=== PATIENT | male | born 1965 | race Caucasian/White ===

== ENCOUNTER 2023-11-26 10:24 | Observation (INO) | payer MEDICAID, OTHER, SELFPAY ==
[~2023-11-26] VITALS: Ht 185.4 cm; Wt 93.7 kg
[2023-11-26 13:36] LABS: BASO # 0.1 10^3/uL (0.0-0.2); BASO % 0.6 % (0.0-1.0); EOS # 0.2 10^3/uL (0.0-0.5); HEMATOCRIT 39.2 % (42.0-52.0); HEMOGLOBIN 12.5 g/dl (13.5-17.5); LYMPH # 2.2 10^3/uL (1.5-5.0); LYMPH % 26.7 % (24.0-44.0); MEAN CORPUSCULAR HEMOGLOBIN 28.3 pg (27.0-33.0); MEAN CORPUSCULAR HGB CONC 31.9 g/dl (32.0-36.5); MEAN CORPUSCULAR VOLUME 88.9 fl (80.0-96.0); MONO # 0.6 10^3/uL (0.0-0.8); NEUTROPHILS % 61.5 % (36.0-66.0); PLATELET COUNT, AUTOMATED 555 10^3/uL (150-450); RED BLOOD COUNT 4.41 10^6/uL (4.30-6.10); WHITE BLOOD COUNT 8.1 10^3/uL (4.0-10.0)
[2023-11-26 13:43] LABS: ERYTHROCYTE SEDIMENTATION RATE 74 mm/hr (0-20)
[2023-11-26 13:49] LABS: INR 1.29; PROTHROMBIN TIME 15.7 SECONDS (12.5-14.5)
[2023-11-26 13:50] LABS: PARTIAL THROMBOPLASTIN TIME 30.8 SECONDS (24.8-34.2)
[2023-11-26 14:01] LABS: ALBUMIN 3.2 G/DL (3.2-5.2); ALKALINE PHOSPHATASE 67 U/L (46-116); ALT/SGPT < 9 U/L (7.0-40); AST/SGOT < 8 U/L (<34); BILIRUBIN,DIRECT 0.2 MG/DL (<0.4); BILIRUBIN,TOTAL 0.3 MG/DL (0.3-1.2); BLOOD UREA NITROGEN 14 MG/DL (9-23); CALCIUM LEVEL 8.9 MG/DL (8.5-10.1); CARBON DIOXIDE LEVEL 27 MMOL/L (20-31); CHLORIDE LEVEL 111 MMOL/L (98-107); CREATININE FOR GFR 1.02 MG/DL (0.70-1.30); GLOMERULAR FILTRATION RATE > 60.0 (>56); GLUCOSE, FASTING 84 MG/DL (60-100); SODIUM LEVEL 144 MMOL/L (136-145); TOTAL PROTEIN 7.2 G/DL (5.7-8.2)
[2023-11-26] MEDS ORDERED: MORPHINE 4 MG/ML 1ML VIAL IV ONE (14:15)
[2023-11-26 14:16] LABS: RSV AMPLIFICATION NEGATIVE (NEGATIVE)
[2023-11-26] MEDS ORDERED: MORPHINE 2 MG/ML 1ML VIAL IV ONE (14:55)
[2023-11-26] MEDS ORDERED: ASPIRIN 81MG CHEW TABLET PO ONE (14:55)
[2023-11-26] MEDS: HYDROMORPHONE HCL 0.5 MG/ 0.5 ML SYRINGE IV PRN ×2 (17:58→20:49)
[2023-11-26] MEDS ORDERED: ONDANSETRON 4MG ORAL DISINTEGRATING TAB PO ONE (18:05)
[2023-11-26] MEDS ORDERED: PROHANCE 279.3MG/ML 5ML VIAL As Ordered ONE (18:25)
[2023-11-26] MEDS ORDERED: PROHANCE 279.3MG/ML 15ML VIAL As Ordered ONE (18:25)
[2023-11-26 18:45] LABS: PROCALCITONIN 0.05 ng/ml
[2023-11-26 19:04] LABS: CHOLESTEROL LEVEL 107 MG/DL (<200); HDL CHOLESTEROL 30.5 MG/DL (>40); LDL CHOLESTEROL 49.9 MG/DL (<100); NON-HDL-C 76.5 MG/DL; TRIGLYCERIDES LEVEL 133 MG/DL (<150)
[2023-11-26 19:07] LABS: VITAMIN B12 LEVEL 715 PG/ML (211-911)
[2023-11-26] MEDS ORDERED: MED REC IN PROGRESS XX SCH (19:25)
[2023-11-26 19:27] LABS: HEMOGLOBIN A1c 5.4 % (4.0-6.0)
[2023-11-26] MEDS ORDERED: ALEV220T22 PO (22:12)
[2023-11-26] MEDS ORDERED: HOME MED LIST COMPLETE! XX SCH (22:15)
[2023-11-26] MEDS: GABAPENTIN 300 MG CAP PO SCH (22:31)
[2023-11-26] MEDS: NORCO, ANEXSIA 5/325MG TABLET (HYDROcodone/ACETAMINOPHEN) PO PRN (22:32)
[2023-11-26 22:52] LABS: APPEARANCE, URINE CLEAR (CLEAR); BACTERIA, URINE AUTO NEGATIVE (NEGATIVE); BILIRUBIN, URINE AUTO NEGATIVE (NEGATIVE); BLOOD, URINE BLOOD 2+ (NEGATIVE); COLOR, URINE YELLOW (YELLOW); GLUCOSE, URINE (UA) AUTO NEGATIVE (NEGATIVE); KETONE, URINE AUTO NEGATIVE (NEGATIVE); LEUKOCYTE ESTERASE, URINE AUTO TRACE (NEGATIVE); MUCUS, URINE SMALL (NEGATIVE); NITRITE, URINE AUTO NEGATIVE (NEGATIVE); PROTEIN, URINE AUTO 1+ mg/dL (NEGATIVE); RBC, URINE AUTO 28 /HPF (0-3); SPECIFIC GRAVITY URINE AUTO 1.021 (1.002-1.035); SQUAMOUS EPITHELIAL CELL UR AU 0 /HPF (0-6); UROBILINOGEN, URINE AUTO 0.2 mg/dL (0.0-2.0); WBC, URINE AUTO 4 /HPF (0-3)
[2023-11-27 06:16] LABS: HEMATOCRIT 36.7 % (42.0-52.0); HEMOGLOBIN 11.6 g/dl (13.5-17.5); MEAN CORPUSCULAR HEMOGLOBIN 28.4 pg (27.0-33.0); MEAN CORPUSCULAR HGB CONC 31.6 g/dl (32.0-36.5); PLATELET COUNT, AUTOMATED 481 10^3/uL (150-450); RED BLOOD COUNT 4.08 10^6/uL (4.30-6.10); WHITE BLOOD COUNT 7.5 10^3/uL (4.0-10.0)
[2023-11-27 06:44] LABS: BLOOD UREA NITROGEN 14 MG/DL (9-23); CALCIUM LEVEL 8.7 MG/DL (8.5-10.1); CARBON DIOXIDE LEVEL 24 MMOL/L (20-31); CHLORIDE LEVEL 112 MMOL/L (98-107); CREATININE FOR GFR 0.94 MG/DL (0.70-1.30); GLOMERULAR FILTRATION RATE > 60.0 (>56); GLUCOSE, FASTING 79 MG/DL (60-100); POTASSIUM SERUM 4.5 MMOL/L (3.5-5.1); SODIUM LEVEL 142 MMOL/L (136-145)
[2023-11-27] MEDS: NORCO, ANEXSIA 5/325MG TABLET (HYDROcodone/ACETAMINOPHEN) PO PRN ×2 (07:58→14:12)
[2023-11-27 08:15] VITALS: BP 172/88; TEMP 98.1; O2SAT 96
[2023-11-27 08:43] VITALS: BP 172/88
[2023-11-27] MEDS: GABAPENTIN 300 MG CAP PO SCH (08:43)
[2023-11-27] MEDS ORDERED: LOSARTAN 25 MG TAB PO SCH (09:00)
[2023-11-27] MEDS ORDERED: CHLORTHALIDONE 25 MG TAB PO SCH (09:00)
[2023-11-27] MEDS ORDERED: ASPIRIN 81MG CHEW TABLET PO SCH (09:00)
[2023-11-27] MEDS ORDERED: ATORVASTATIN 20 MG TAB PO SCH (09:00)
[2023-11-27] MEDS ORDERED: ENOXAPARIN 40MG/0.4ML SYRINGE (J1650 PER 10MG) SC SCH (09:00)
[2023-11-27 10:46] VITALS: BP 140/70
[2023-11-27 12:00] VITALS: BP 143/73; TEMP 97.5; O2SAT 97
[2023-11-27] MEDS ORDERED: ASPI81CH8 PO (12:00)
[2023-11-27] MEDS ORDERED: ATOR1TAB21 PO (12:00)
[2023-11-27] MEDS ORDERED: LOSA-527 PO (12:00)
[2023-11-27] MEDS ORDERED: [UNRECOGNIZED DRUG - CODE] MC (12:00)
[2023-11-27] MEDS ORDERED: GABA-282 PO (12:00)
[2023-11-27] MEDS ORDERED: CHLO25TA PO (12:00)
[2023-11-27] MEDS ORDERED: NEUR300C PO (12:02)
[2023-11-27] MEDS ORDERED: DOXY100C3 PO (13:44)
[2023-11-27 14:00] VITALS: BP 149/100; TEMP 97.1; O2SAT 98
== END 2023-11-27 16:15 | disposition home or self-care (01) ==
LOC: EDBD 10:24 → M ED 10:24 → EEVIPCON 17:57 → M ED INP 17:57 → M MS4PR 11-27 08:15
PROVIDERS: ADMIT Internal Medicine; ATTEND Internal Medicine
DX: L03.116 Cellulitis of left lower limb (principal); I16.0 Hypertensive urgency; Z86.73 Personal history of transient ischemic attack (TIA), and cerebral infarction without residual deficits; F17.218 Nicotine dependence, cigarettes, with other nicotine-induced disorders; D75.838 Other thrombocytosis; D64.9 Anemia, unspecified; Z79.82 Long term (current) use of aspirin; Z79.899 Other long term (current) drug therapy
CPT/HCPCS: 73610; 73723; 80048; 80061; 80076; 81001; 82607; 83036; 83605; 84145; 85025; 85027; 85610; 85652; 85730; 86140; 87040; 87070; 87077; 87186; 87205; 87631; 87641; 93925; 93971; 96372; 96374; 96375; 96376; 99284; A9576; J1170; J1650

== ENCOUNTER 2023-12-15 04:04 | Emergency (ER) | payer MEDICAID ==
[~2023-12-15] VITALS: Ht 185.4 cm; Wt 111.4 kg
[~2023-12-15 04:04] MED LIST: ALEV220T22 PO; ASPI81CH8 PO; ATOR1TAB21 PO; CHLO25TA PO; DOXY100C3 PO; GABA-282 PO; LOSA-527 PO; NEUR300C PO; [UNRECOGNIZED DRUG - CODE] MC
[2023-12-15 04:35] LABS: BASO # 0.1 10^3/uL (0.0-0.2); BASO % 0.6 % (0.0-1.0); EOS # 0.8 10^3/uL (0.0-0.5); EOS % 6.8 % (0.0-3.0); HEMATOCRIT 39.3 % (42.0-52.0); HEMOGLOBIN 12.9 g/dl (13.5-17.5); LYMPH # 2.2 10^3/uL (1.5-5.0); LYMPH % 18.3 % (24.0-44.0); MEAN CORPUSCULAR HEMOGLOBIN 28.4 pg (27.0-33.0); MEAN CORPUSCULAR HGB CONC 32.8 g/dl (32.0-36.5); MEAN CORPUSCULAR VOLUME 86.4 fl (80.0-96.0); MONO # 0.9 10^3/uL (0.0-0.8); MONO % 7.7 % (2.0-8.0); NEUTROPHILS # 7.9 10^3/uL (1.5-8.5); NEUTROPHILS % 66.3 % (36.0-66.0); PLATELET COUNT, AUTOMATED 359 10^3/uL (150-450); RED BLOOD COUNT 4.55 10^6/uL (4.30-6.10); WHITE BLOOD COUNT 11.8 10^3/uL (4.0-10.0)
[2023-12-15 05:02] LABS: BLOOD UREA NITROGEN 21 MG/DL (9-23); CALCIUM LEVEL 9.2 MG/DL (8.5-10.1); CARBON DIOXIDE LEVEL 28 MMOL/L (20-31); CHLORIDE LEVEL 106 MMOL/L (98-107); CREATININE FOR GFR 1.06 MG/DL (0.70-1.30); GLOMERULAR FILTRATION RATE > 60.0 (>56); GLUCOSE, FASTING 111 MG/DL (60-100); SODIUM LEVEL 140 MMOL/L (136-145)
[2023-12-15 05:08] LABS: ERYTHROCYTE SEDIMENTATION RATE 115 mm/hr (0-20)
[2023-12-15 05:09] LABS: RSV AMPLIFICATION NEGATIVE (NEGATIVE)
[2023-12-15] MEDS ORDERED: POTASSIUM CHLORIDE 10% LIQ 20MEQ/15ML UDC PO ONE (06:00)
[2023-12-15] MEDS ORDERED: MORPHINE 4 MG/ML 1ML VIAL IV ONE (06:50)
[2023-12-15] MEDS ORDERED: NS 1,000 ML IV ONE (06:50)
[2023-12-15] MEDS ORDERED: POTASSIUM CHLORIDE 10MEQ SR TABLET PO ONE (06:50)
[2023-12-15] MEDS ORDERED: NORCO, ANEXSIA 5/325MG TABLET (HYDROcodone/ACETAMINOPHEN) PO ONE (07:30)
[2023-12-15] MEDS ORDERED: DALBAVANCIN 1,500 MG in D5W 250 ML IV ONE (07:30)
[2023-12-15] MEDS ORDERED: HYDR-3713 PO (08:41)
[2023-12-15] MEDS ORDERED: CHLORTHALIDONE 12.5MG PER 1/2 TABLET PO ONE (09:45)
[2023-12-15] MEDS ORDERED: LOSARTAN 25 MG TAB PO ONE (09:45)
[2023-12-15 09:54] VITALS: BP 192/92
[2023-12-15 10:20] VITALS: TEMP 98.2
[2023-12-15] MEDS ORDERED: ONDANSETRON 4MG 2ML VIAL IV ONE (10:35)
[2023-12-15 12:01] VITALS: BP 136/80; O2SAT 98
== END 2023-12-15 12:04 | disposition home or self-care (01) ==
LOC: EDBD 04:04 → M ED 04:04
DX: L03.116 Cellulitis of left lower limb (principal); L97.329 Non-pressure chronic ulcer of left ankle with unspecified severity; E87.6 Hypokalemia; I10 Essential (primary) hypertension; Z79.82 Long term (current) use of aspirin; Z79.891 Long term (current) use of opiate analgesic; Z79.811 Long term (current) use of aromatase inhibitors; Z79.899 Other long term (current) drug therapy
CPT/HCPCS: 80048; 83605; 85025; 85652; 86140; 87040; 87631; 96365; 96375; 99284; J0875; J2405

== ENCOUNTER → 2024-06-30 | Outpatient (REF) | payer MEDICAID, OTHER ==
[~2024-06-30] MED LIST changes: +ASPI-226 PO; +BACTDSTA PO; +HYDR-3713 PO; +LISI10TA22 PO; +PERCOCET PO
[2024-06-30 14:14] LABS: CREATININE, URINE 98.6 MG/DL; MAU/CREAT RATIO 11.1 MCG/MG (0.0-30.0)
[2024-06-30 18:46] LABS: BASO # 0.1 10^3/uL (0.0-0.2); BASO % 0.8 % (0.0-1.0); EOS # 0.4 10^3/uL (0.0-0.5); EOS % 4.1 % (0.0-3.0); HEMATOCRIT 40.5 % (42.0-52.0); HEMOGLOBIN 12.3 g/dl (13.5-17.5); LYMPH # 2.2 10^3/uL (1.5-5.0); LYMPH % 22.4 % (24.0-44.0); MEAN CORPUSCULAR HEMOGLOBIN 26.6 pg (27.0-33.0); MEAN CORPUSCULAR HGB CONC 30.4 g/dl (32.0-36.5); MEAN CORPUSCULAR VOLUME 87.5 fl (80.0-96.0); MONO # 0.7 10^3/uL (0.0-0.8); MONO % 6.7 % (2.0-8.0); NEUTROPHILS # 6.5 10^3/uL (1.5-8.5); NEUTROPHILS % 65.6 % (36.0-66.0); PLATELET COUNT, AUTOMATED 391 10^3/uL (150-450); RED BLOOD COUNT 4.63 10^6/uL (4.30-6.10); WHITE BLOOD COUNT 9.9 10^3/uL (4.0-10.0)
[2024-06-30 19:06] LABS: HEMOGLOBIN A1c 5.2 % (4.0-6.0)
[2024-06-30 19:07] LABS: ALBUMIN 3.6 G/DL (3.2-5.2); ALKALINE PHOSPHATASE 88 U/L (46-116); ALT/SGPT 12 U/L (7.0-40); AST/SGOT < 8 U/L (<34); BILIRUBIN,TOTAL 0.3 MG/DL (0.3-1.2); BLOOD UREA NITROGEN 19 MG/DL (9-23); CALCIUM LEVEL 9.3 MG/DL (8.5-10.1); CARBON DIOXIDE LEVEL 28 MMOL/L (20-31); CHLORIDE LEVEL 111 MMOL/L (98-107); CHOLESTEROL LEVEL 138 MG/DL (<200); CHOLESTEROL RISK RATIO 3.38 (<5); CREATININE FOR GFR 1.07 MG/DL (0.70-1.30); GLOMERULAR FILTRATION RATE > 60.0 (>56); GLUCOSE, FASTING 94 MG/DL (60-100); HDL CHOLESTEROL 40.8 MG/DL (>40); LDL CHOLESTEROL 62.8 MG/DL (<100); NON-HDL-C 97.2 MG/DL; POTASSIUM SERUM 5.1 MMOL/L (3.5-5.1); SODIUM LEVEL 141 MMOL/L (136-145); TOTAL PROTEIN 7.1 G/DL (5.7-8.2); TRIGLYCERIDES LEVEL 172 MG/DL (<150)
[2024-06-30 19:08] LABS: THYROID STIMULATING HORMONE 3.317 uIU/ML (0.55-4.78)
[2024-06-30 19:11] LABS: TOTAL 25(OH) VITAMIN D 25.3 NG/ML (20.0-100.0)
[2024-06-30 19:36] LABS: HIV 1&2 SCREEN NEGATIVE (NEGATIVE)
[2024-06-30 19:42] LABS: HEPATITIS C VIRUS ABY INDEX 0.03 INDEX (<0.8)
== END ==
LOC: M LAB REF 13:11
PROVIDERS: ATTEND Nurse Practitioner Family
DX: I10 Essential (primary) hypertension (principal)

== ENCOUNTER 2024-08-25 08:57 | Inpatient (IN) | payer MEDICAID, OTHER ==
[~2024-08-25] VITALS: Ht 185.4 cm; Wt 92.3 kg
[~2024-08-25 08:57] MED LIST changes: +GABA-1172 PO; -GABA-282 PO
[2024-08-25 11:13] LABS: BASO # 0.1 10^3/uL (0.0-0.2); BASO % 0.6 % (0.0-1.0); EOS # 0.5 10^3/uL (0.0-0.5); EOS % 4.5 % (0.0-3.0); HEMATOCRIT 42.2 % (42.0-52.0); HEMOGLOBIN 13.4 g/dl (13.5-17.5); LYMPH # 2.6 10^3/uL (1.5-5.0); MEAN CORPUSCULAR HEMOGLOBIN 27.2 pg (27.0-33.0); MEAN CORPUSCULAR HGB CONC 31.8 g/dl (32.0-36.5); MEAN CORPUSCULAR VOLUME 85.6 fl (80.0-96.0); MONO # 0.6 10^3/uL (0.0-0.8); MONO % 4.6 % (2.0-8.0); NEUTROPHILS # 8.1 10^3/uL (1.5-8.5); PLATELET COUNT, AUTOMATED 393 10^3/uL (150-450); RED BLOOD COUNT 4.93 10^6/uL (4.30-6.10)
[2024-08-25 11:38] LABS: ERYTHROCYTE SEDIMENTATION RATE 40 mm/hr (0-20)
[2024-08-25 11:44] LABS: C REACTIVE PROTEIN QUANTITATIV < 0.40 MG/DL (<1.0)
[2024-08-25 11:57] LABS: ALBUMIN 3.9 G/DL (3.2-5.2); ALKALINE PHOSPHATASE 83 U/L (46-116); ALT/SGPT 10 U/L (7.0-40); AST/SGOT < 8 U/L (<34); BILIRUBIN,DIRECT 0.2 MG/DL (<0.4); BILIRUBIN,TOTAL 0.4 MG/DL (0.3-1.2); BLOOD UREA NITROGEN 24 MG/DL (9-23); CALCIUM LEVEL 10.4 MG/DL (8.5-10.1); CARBON DIOXIDE LEVEL 20 MMOL/L (20-31); CHLORIDE LEVEL 114 MMOL/L (98-107); CREATININE FOR GFR 0.86 MG/DL (0.70-1.30); GLOMERULAR FILTRATION RATE > 60.0 (>56); GLUCOSE, FASTING 104 MG/DL (60-100); POTASSIUM SERUM 3.7 MMOL/L (3.5-5.1); SODIUM LEVEL 142 MMOL/L (136-145); TOTAL PROTEIN 7.9 G/DL (5.7-8.2)
[2024-08-25] MEDS ORDERED: ATOR40TA75 PO (12:00)
[2024-08-25] MEDS ORDERED: CHLO125TA PO (12:00)
[2024-08-25] MEDS ORDERED: ACE65ERTAB PO (12:00)
[2024-08-25] MEDS ORDERED: VITA200032 PO (12:00)
[2024-08-25] MEDS: MORPHINE 4 MG/ML 1ML VIAL IV PRN (12:02)
[2024-08-25] MEDS ORDERED: PROHANCE 279.3MG/ML 15ML VIAL As Ordered ONE (18:37)
[2024-08-25] MEDS ORDERED: PROHANCE 279.3MG/ML 5ML VIAL As Ordered ONE (18:37)
[2024-08-25] MEDS ORDERED: VANCOMYCIN HCL 1,500 MG in IV FLUID PLACE HOLDER 1 EA IV ONE (19:40)
[2024-08-25] MEDS ORDERED: ASPI81TA26 PO (19:42)
[2024-08-25] MEDS ORDERED: HOME MED LIST COMPLETE! XX SCH (19:45)
[2024-08-25] MEDS: PIPERACILLIN/TAZOBACTAM SOD 4.5 GM in D5W MINI-BAG PLUS 50 ML IV ONE (19:56)
[2024-08-25] MEDS: ONDANSETRON 4MG 2ML VIAL IV ONE (21:36)
[2024-08-25] MEDS: MORPHINE 4 MG/ML 1ML VIAL IV ONE (21:36)
[2024-08-25] MEDS: VANCOMYCIN 1,500 MG/300 ML IV BAG *LOAD IV ONE (21:37)
[2024-08-25 23:17] LABS: PHOSPHORUS LEVEL 4.4 MG/DL (2.5-4.9)
[2024-08-25 23:24] VITALS: BP 158/94; TEMP 97.9; O2SAT 98
[2024-08-25] MEDS: GABAPENTIN 300 MG CAP PO SCH (23:49)
[2024-08-25] MEDS: LR 1,000 ML IV ONE (23:49)
[2024-08-25] MEDS: HYDROmorphone 2 MG TAB PO PRN (23:59)
[2024-08-26] VITALS (7 sets, daily range): BP systolic 118–140; BP diastolic 83–94; TEMP 97.5–98.1; O2SAT 95–99
[2024-08-26 07:07] LABS: HEMATOCRIT 37.3 % (42.0-52.0); HEMOGLOBIN 11.7 g/dl (13.5-17.5); MEAN CORPUSCULAR HEMOGLOBIN 27.3 pg (27.0-33.0); MEAN CORPUSCULAR HGB CONC 31.4 g/dl (32.0-36.5); MEAN CORPUSCULAR VOLUME 86.9 fl (80.0-96.0); PLATELET COUNT, AUTOMATED 348 10^3/uL (150-450); RED BLOOD COUNT 4.29 10^6/uL (4.30-6.10); WHITE BLOOD COUNT 9.9 10^3/uL (4.0-10.0)
[2024-08-26 07:54] LABS: ALBUMIN 3.5 G/DL (3.2-5.2); ALKALINE PHOSPHATASE 72 U/L (46-116); ALT/SGPT 9 U/L (7.0-40); AST/SGOT < 8 U/L (<34); BILIRUBIN,TOTAL 0.5 MG/DL (0.3-1.2); BLOOD UREA NITROGEN 24 MG/DL (9-23); CALCIUM LEVEL 10.4 MG/DL (8.5-10.1); CARBON DIOXIDE LEVEL 23 MMOL/L (20-31); CHLORIDE LEVEL 109 MMOL/L (98-107); CREATININE FOR GFR 0.91 MG/DL (0.70-1.30); GLOMERULAR FILTRATION RATE > 60.0 (>56); GLUCOSE, FASTING 96 MG/DL (60-100); MAGNESIUM LEVEL 1.9 MG/DL (1.8-2.4); SODIUM LEVEL 138 MMOL/L (136-145); TOTAL PROTEIN 7.1 G/DL (5.7-8.2)
[2024-08-26] MEDS: ATORVASTATIN 20 MG TAB PO SCH (08:09)
[2024-08-26] MEDS: ACETAMINOPHEN 325 MG TAB PO SCH (08:09)
[2024-08-26] MEDS: CHLORTHALIDONE 25 MG TAB PO SCH (09:00)
[2024-08-26] MEDS: oxyCODONE 5MG TAB PO PRN (10:02)
[2024-08-26] MEDS: GABAPENTIN 300 MG CAP PO SCH (15:02)
[2024-08-26] MEDS: ENOXAPARIN 40MG/0.4ML SYRINGE (J1650 PER 10MG) SC SCH (15:03)
[2024-08-26] MEDS: ASPIRIN 81MG ENTERIC TABLET PO SCH (15:03)
[2024-08-26 15:08] LABS: PROCALCITONIN 0.21 ng/ml
[2024-08-26] MEDS: DOXYCYCLINE HYCLATE 100MG TABLET PO SCH (20:59)
[2024-08-27] MEDS: methocarbamoL 750 MG TAB PO PRN (01:23)
[2024-08-27 05:43] VITALS: BP 140/95; TEMP 97.5; O2SAT 96
[2024-08-27] MEDS: KETOROLAC 30 MG/ML 1ML VIAL IV ONE (05:46)
[2024-08-27 08:00] VITALS: BP 146/89; TEMP 97.5; O2SAT 96
[2024-08-27 12:00] VITALS: BP 123/77; TEMP 97.7; O2SAT 96
[2024-08-27] MEDS: CEFDINIR 300 MG CAP (OMNICEF) PO SCH (14:55)
[2024-08-27 16:00] VITALS: BP 132/83; TEMP 97.5; O2SAT 99
[2024-08-27] MEDS: BUPRENORPHINE/NALOXONE 2-0.5MG SUBLINGUAL TABLET(SUBOXONE) SL SCH (20:11)
[2024-08-27 20:34] VITALS: BP 133/76; TEMP 97.7
[2024-08-28 00:17] VITALS: BP 119/76; TEMP 97.3; O2SAT 96
[2024-08-28 04:17] VITALS: BP 122/76; TEMP 97.1
[2024-08-28] MEDS: DULoxetine 20MG CAP (CYMBALTA) PO SCH (08:58)
[2024-08-28 09:01] VITALS: BP 122/76
[2024-08-28] MEDS ORDERED: LEVO1TAB40 PO (10:37)
[2024-08-28] MEDS ORDERED: PROBCAP14 PO (10:37)
[2024-08-28] MEDS ORDERED: DOXY-441 PO (10:37)
[2024-08-28] MEDS ORDERED: SUBO8MIS SL (11:04)
== END 2024-08-28 14:05 | disposition home or self-care (01) | DRG 197 ==
LOC: M ED 08:57 → M ED INP 21:30 → M MS5PR 23:16
PROVIDERS: ADMIT Internal Medicine; ATTEND Internal Medicine
DX: I83.028 Varicose veins of left lower extremity with ulcer other part of lower leg (principal); E83.52 Hypercalcemia; I10 Essential (primary) hypertension; E78.5 Hyperlipidemia, unspecified; G89.29 Other chronic pain; F17.210 Nicotine dependence, cigarettes, uncomplicated; Z79.82 Long term (current) use of aspirin; Z79.899 Other long term (current) drug therapy; Z86.73 Personal history of transient ischemic attack (TIA), and cerebral infarction without residual deficits

== ENCOUNTER → 2024-09-01 | Outpatient (CLI) | payer MEDICAID, OTHER ==
[~2024-09-01] MED LIST changes: +ACE65ERTAB PO; +ASPI81TA26 PO; +ATOR40TA75 PO; +CHLO125TA PO; +DOXY-441 PO; +LEVO1TAB40 PO; +PROBCAP14 PO; +SUBO8MIS SL; +VITA200032 PO
== END ==
LOC: M RAD 13:32
PROVIDERS: ATTEND Surgery
DX: L97.322 Non-pressure chronic ulcer of left ankle with fat layer exposed (principal)

== ENCOUNTER 2024-11-03 14:09 | Emergency (ER) | payer OTHER ==
[~2024-11-03] VITALS: Ht 185.4 cm; Wt 89.9 kg
[2024-11-03 16:48] LABS: BASO # 0.1 10^3/uL (0.0-0.2); BASO % 1.4 % (0.0-1.0); EOS # 0.6 10^3/uL (0.0-0.5); EOS % 7.3 % (0.0-3.0); HEMATOCRIT 37.8 % (42.0-52.0); HEMOGLOBIN 11.7 g/dl (13.5-17.5); LYMPH # 2.5 10^3/uL (1.5-5.0); MEAN CORPUSCULAR HEMOGLOBIN 27.3 pg (27.0-33.0); MEAN CORPUSCULAR VOLUME 88.1 fl (80.0-96.0); MONO # 0.5 10^3/uL (0.0-0.8); MONO % 5.7 % (2.0-8.0); NEUTROPHILS # 4.4 10^3/uL (1.5-8.5); NEUTROPHILS % 53.7 % (36.0-66.0); PLATELET COUNT, AUTOMATED 361 10^3/uL (150-450); RED BLOOD COUNT 4.29 10^6/uL (4.30-6.10); WHITE BLOOD COUNT 8.1 10^3/uL (4.0-10.0)
[2024-11-03 17:05] LABS: APPEARANCE, URINE CLEAR (CLEAR); BACTERIA, URINE AUTO NEGATIVE (NEGATIVE); BILIRUBIN, URINE AUTO NEGATIVE (NEGATIVE); BLOOD, URINE BLOOD 1+ (NEGATIVE); COLOR, URINE YELLOW (YELLOW); GLUCOSE, URINE (UA) AUTO NEGATIVE (NEGATIVE); KETONE, URINE AUTO NEGATIVE (NEGATIVE); LEUKOCYTE ESTERASE, URINE AUTO 1+ (NEGATIVE); MUCUS, URINE SMALL (NEGATIVE); NITRITE, URINE AUTO NEGATIVE (NEGATIVE); PROTEIN, URINE AUTO 1+ mg/dL (NEGATIVE); RBC, URINE AUTO 73 /HPF (0-3); SPECIFIC GRAVITY URINE AUTO 1.025 (1.002-1.035); SQUAMOUS EPITHELIAL CELL UR AU 0 /HPF (0-6); UROBILINOGEN, URINE AUTO 0.2 mg/dL (0.0-2.0); WBC, URINE AUTO 13 /HPF (0-3)
[2024-11-03 17:15] LABS: CPK CREATINE PHOSPHOKINASE 109 U/L (46-171)
[2024-11-03 17:28] LABS: ALBUMIN 3.6 G/DL (3.2-5.2); ALKALINE PHOSPHATASE 77 U/L (40-129); ALT/SGPT 11 U/L (7.0-40); AST/SGOT < 8 U/L (<34); BILIRUBIN,DIRECT 0.2 MG/DL (<0.4); BILIRUBIN,TOTAL 0.4 MG/DL (0.3-1.2); BLOOD UREA NITROGEN 15 MG/DL (9-23); CALCIUM LEVEL 9.3 MG/DL (8.5-10.1); CARBON DIOXIDE LEVEL 23 MMOL/L (20-31); CHLORIDE LEVEL 112 MMOL/L (98-107); CK-MB VALUE MASS 2.1 NG/ML (<3.6); CREATININE FOR GFR 0.97 MG/DL (0.70-1.30); GLOMERULAR FILTRATION RATE > 60.0 (>56); GLUCOSE, FASTING 80 MG/DL (60-100); MB/CK RELATIVE INDEX 1.92 (< OR =4); POTASSIUM SERUM 3.5 MMOL/L (3.5-5.1); SODIUM LEVEL 142 MMOL/L (136-145); TOTAL PROTEIN 7.3 G/DL (5.7-8.2)
[2024-11-03] MEDS: oxyCODONE 5MG TAB PO ONE (19:04)
[2024-11-03 19:16] VITALS: TEMP 97.1; O2SAT 97
[2024-11-03 19:45] LABS: CK-MB VALUE MASS 2.6 NG/ML (<3.6)
[2024-11-03 19:51] LABS: MB/CK RELATIVE INDEX 2.18 (< OR =4)
[2024-11-03] MEDS ORDERED: LISI10TA22 PO (20:04)
[2024-11-03] MEDS ORDERED: CIPR-249 PO (20:04)
[2024-11-03 20:08] VITALS: BP 166/102
[2024-11-03] MEDS: CIPROFLOXACIN 500MG TABLET PO ONE (20:27)
[2024-11-03 21:17] LABS: Trichomonas vaginalis (AMP) NOT DETECTED (NEGATIVE)
[2024-11-03 21:41] LABS: GC DNA AMPLIFICATION NEGATIVE (NEGATIVE)
== END 2024-11-03 20:35 | disposition home or self-care (01) ==
LOC: M ED 14:09
DX: I10 Essential (primary) hypertension (principal); N39.0 Urinary tract infection, site not specified; L97.329 Non-pressure chronic ulcer of left ankle with unspecified severity; G81.94 Hemiplegia, unspecified affecting left nondominant side; D75.839 Thrombocytosis, unspecified; F17.200 Nicotine dependence, unspecified, uncomplicated; Z79.82 Long term (current) use of aspirin; Z79.899 Other long term (current) drug therapy